=== PATIENT | male | born 1950 | race Caucasian/White ===

== ENCOUNTER → 2021-09-06 | Outpatient (CLI) | payer MEDICARE, BC | LOC: KOH-I 08:58 | DX: S09.90XD Unspecified injury of head, subsequent encounter (principal); R91.8 Other nonspecific abnormal finding of lung field | CPT/HCPCS: 70450 ==

== ENCOUNTER → 2022-01-31 | Outpatient (CLI) | payer MEDICARE, BC | LOC: KOH-I 13:00 → US 13:34 | DX: R79.89 Other specified abnormal findings of blood chemistry (principal); K76.0 Fatty (change of) liver, not elsewhere classified ==